=== PATIENT | male | born 1975 | race Caucasian/White ===

== ENCOUNTER 2016-12-16 23:12 | Emergency (ER) | payer SELFPAY ==
[~2016-12-16] VITALS: Ht 167.6 cm; Wt 67.5 kg
[2016-12-16 23:16] VITALS: Ht 167.6 cm; Wt 67.5 kg
[2016-12-17] MEDS ORDERED: IBUPROFEN 600 MG TAB PO ONE (01:30)
[2016-12-17] MEDS ORDERED: AMO500 PO (01:58)
--- NOTE | 2016-12-17 02:41 | ERD ---
ER Documentation Chief Complaint Date/Time DATE: 12/17/16 TIME: 02:39 Chief Complaint right earache while cleaning ear with qtip x 3 days ago HPI This patient is a 41-year-old male with no significant medical history presenting to the emergency department for right earache which has been ongoing for 3 days. The patient states he got part of the Q-tip stuck in his right ear. The patient denies tinnitus or hearing changes. There is been no blood from the external auditory canal. The patient denies fevers, chills, or other symptoms. The patient is taken no medication for relief of his symptoms. Patient's symptoms are currently 5 out of 10 in severity. No other symptoms to report at this time. ROS All systems reviewed and are negative except as per history of present illness. Medications Home Meds Active Scripts Amoxicillin* (Amoxicillin*) 500 Mg Cap, 500 MG PO BID for 10 Days, #20 CAP Prov:ASHLEY CASE PA-C 12/17/16 Allergies Allergies: Coded Allergies: No Known Drug Allergies (Verified Allergy, Unknown, 12/16/16) PMhx/Soc Medical and Surgical Hx: pt denies Medical Hx, pt denies Surgical Hx Hx Alcohol Use: Yes (socially) Hx Substance Use: No Hx Tobacco Use: Yes Smoking Status: Current some day smoker FmHx Noncontributory for chief complaint Physical Exam Vitals Vital Signs Date Time Temp Pulse Resp B/P Pulse Ox O2 Delivery O2 Flow Rate FiO2 12/16/16 23:16 97.5 100 20 139/85 98 Physical Exam Const: The patient is resting comfortably in no acute distress. Head: Atraumatic Eyes: Normal Conjunctiva ENT: Normal External Ears, Nose and Mouth. There is cotton present in the right external auditory canal. After removing the cotton the right tympanic membrane is erythematous but nonbulging. The left TM is normal in appearance. There is no mastoid tenderness to palpation bilaterally. Neck: Full range of motion..~ No meningismus. Resp: Clear to auscultation bilaterally Cardio: Regular rate and rhythm, no murmurs Abd: Soft, non tender, non distended. Normal bowel sounds Skin: No petechiae or rashes Back: No midline or flank tenderness Ext: No cyanosis, or edema Neur: Awake and alert Psych: Normal Mood and Affect Results 24 hrs Current Medications Medications (Trade) Dose Ordered Sig/Kimberli Route PRN Reason Start Time Stop Time Status Last Admin Dose Admin Ibuprofen (Motrin) 600 mg ONCE ONCE PO 12/17/16 01:30 12/17/16 01:31 DC 12/17/16 01:37 Procedures/MDM 41-year-old male presents secondary to complaints of having cotton stuck in his right ear after cleaning it with a Q-tip. I irrigated the right ear but was unsuccessful in removing the contact. I used alligator forceps to successfully remove the cotton from the right ear. Examination of the tympanic membrane showed erythema which is concerning for otitis media. Patient was treated in the department with 600 mg p.o. ibuprofen and is feeling improved on reevaluation. The patient is stable for outpatient management with a prescription for amoxicillin. The patient was given strict return precautions to the emergency department and he demonstrates good understanding. I have low suspicion for mastoiditis, TM rupture, or other emergent conditions. All questions and concerns were addressed. The patient is to follow-up with his primary care physician. Departure Diagnosis: Primary Impression: Right ear pain Additional Impressions: Foreign body in ear Encounter type: initial encounter Laterality: right Qualified Code: T16.1XXA - Foreign body in ear, right, initial encounter Otitis media Otitis media type: unspecified Laterality: right Chronicity: unspecified Qualified Code: H66.91 - Right otitis media, unspecified chronicity, unspecified otitis media type Condition: Fair Patient Instructions: Otitis Media, Abx Tx (Adult) [facility] Usted se beckham hecho un examen mdico de control que le indica que no est en curtis condicin que requiera tratamiento urgente en el Departamento de Emergencia. Un estudio ms profundo y el tratamiento de larios condicin pueden esperar sin ningn riesgo hasta que usted sea atendida/o en el consultorio de larios mdico o curtis cl richy. Es responsabilidad suya arreglar curtis deisy para el seguimiento del hammad. MANEJO DE CONDICIONES NO URGENTES EN EL FUTURO 1) Si usted tiene un mdico de atencin primaria: Usted debera llamar a larios mdico de atencin primaria antes de venir al departamento de emergencia. Despus de las horas de consultorio, larios doctor o lraios asociado/a est disponible por telfono. El mdico o enfermero de paul en el servicio telefnico puede asesorarle por gia medio para atender el problema, o hammad contrario se puede programar curtis deisy. 2) Si usted no tiene un mdico de atencin primaria: Llame al mdico o clnica de referencia que aparece abajo aliya las horas de consultorio para hacer curtis deisy para que le vean. CLINICAS: [place] [phone] [facility] [phone] [facility] [phone] [place] [phone] [place] [phone] [facility]. [phone] [address] Additional Instructions: No mas mejor en 2-3 gil, regresar. Mas peor en 24 horas, regresear rapidamente. Ir a doctor primario in 5-7 gil. Usar instrucciones cuando lexus medicamento. ASHLEY CASE PA-C Dec 17, 2016 02:41
== END 2016-12-17 02:59 | disposition left against medical advice (07) ==
LOC: FTE 23:12
DX: H92.01 Otalgia, right ear (principal); T16.1XXA Foreign body in right ear, initial encounter; H66.91 Otitis media, unspecified, right ear; F17.210 Nicotine dependence, cigarettes, uncomplicated; X58.XXXA Exposure to other specified factors, initial encounter